=== PATIENT | female | born 1950 | race Two or more races ===

== ENCOUNTER 2017-08-12 05:52 | Day surgery (SDC) | payer OTHER ==
[~2017-08-12 05:52] MED LIST: GABAPENTIN300 MG PO; LISINOPRIL2.5 MG PO; PERCOCET 5-3251 EACH PO; TRIAMTERENE-HC1 EAC3 PO; ZOCOR40 MG PO
[2017-08-12] MEDS ORDERED: PERCOCET 5-3251 EACH PO (08:01)
== END 2017-08-12 09:25 | disposition home or self-care (01) ==
LOC: CIR.AMB 05:52
DX: R15.9 Full incontinence of feces (principal)
CPT/HCPCS: 64590; C1767

== ENCOUNTER 2019-03-19 05:44 | Day surgery (SDC) | payer OTHER | END 2019-03-19 11:55 | disposition home or self-care (01) | LOC: AMB-ENDOS 05:44 | DX: D12.2 Benign neoplasm of ascending colon (principal) ==

== ENCOUNTER 2020-08-22 06:00 | Day surgery (SDC) | payer OTHER ==
[~2020-08-22 06:00] MED LIST changes: +FORTAMET500 MG PO; +HORIZANT300 MG PO; +MAXIDE PO; +SIMVASTATIN40 MG PO
[2020-08-22] MEDS ORDERED: ULTRACET PO (09:59)
== END 2020-08-22 13:00 | disposition home or self-care (01) ==
LOC: CIR.AMB 06:00
PROVIDERS: ATTEND Surgery
DX: R15.9 Full incontinence of feces (principal); Z20.828 Contact with and (suspected) exposure to other viral communicable diseases
CPT/HCPCS: 64581; 64590; 95972; C1778; L8679